=== PATIENT | female | born 1965 | race African-American/Black ===

== ENCOUNTER 2021-06-04 09:46 | Outpatient (CLI) | payer MEDICARE, MEDICAID | END 2021-06-04 09:47 | disposition home or self-care (01) | LOC: CSHCT 09:46 | PROVIDERS: ATTEND Family Medicine | DX: Z12.2 Encounter for screening for malignant neoplasm of respiratory organs (principal); Z87.891 Personal history of nicotine dependence | CPT/HCPCS: 71271 ==

== ENCOUNTER 2021-11-05 08:22 | Outpatient (CLI) | payer OTHER, MEDICAID ==
[2021-11-05] MEDS ORDERED: Iopamidol 370 76% 100 ML VIAL ONE (09:23)
== END 2021-11-05 08:23 | disposition home or self-care (01) ==
LOC: CSHCT 08:22
PROVIDERS: ATTEND Internal Medicine Cardiovascular Disease
DX: R06.02 Shortness of breath (principal)
CPT/HCPCS: 71275

== ENCOUNTER 2023-06-07 14:27 | Outpatient (CLI) | payer OTHER | END 2023-06-07 14:28 | disposition home or self-care (01) | LOC: CSHMAMMO 14:27 | PROVIDERS: ATTEND Family Medicine | DX: Z12.31 Encounter for screening mammogram for malignant neoplasm of breast (principal) | CPT/HCPCS: 77063; 77067 ==

== ENCOUNTER 2024-08-24 11:54 | Outpatient (CLI) | payer MEDICAID, MEDICARE | END 2024-08-24 11:55 | disposition home or self-care (01) | LOC: CSHULT 11:54 | PROVIDERS: ATTEND Family Medicine | DX: G45.3 Amaurosis fugax (principal); R42 Dizziness and giddiness; R55 Syncope and collapse | CPT/HCPCS: 93880 ==

== ENCOUNTER 2024-09-05 10:07 | Outpatient (CLI) | payer MEDICARE | END 2024-09-05 10:08 | disposition home or self-care (01) | LOC: CSHMAMMO 10:07 | PROVIDERS: ATTEND Family Medicine | DX: Z12.31 Encounter for screening mammogram for malignant neoplasm of breast (principal) | CPT/HCPCS: 77063; 77067 ==